=== PATIENT | male | born 1940 | race Caucasian/White ===

== ENCOUNTER 2020-01-04 06:48 | Outpatient (CLI) | payer MEDICARE, MEDICAID ==
[~2020-01-04] VITALS: Ht 177.8 cm; Wt 68.2 kg
[2020-01-04 08:42] VITALS: BP 104/56; Ht 177.8 cm; Wt 68.2 kg
[2020-01-04] MEDS ORDERED: LASIX20 MG (08:50)
[2020-01-04] MEDS ORDERED: PROTONIX20 MG PO (08:50)
[2020-01-04] MEDS ORDERED: ALDACTONE25 MG PO (08:53)
[2020-01-04] MEDS ORDERED: ULTRAM50 MG PO (08:55)
[2020-01-04] MEDS ORDERED: PROAIR HFA8.5 G1 INH (08:55)
[2020-01-04] MEDS ORDERED: COLACE100 MG PO (08:56)
--- NOTE | 2020-01-04 08:59 | NUR ---
INFECTION CONTROL NOTIFIED OF 2 DAY HOSPITALIZATION THIS YEAR
[2020-01-04 09:04] LABS: ANION GAP 15.6 mmol/L (8-16); CALCIUM 8.6 mg/dL (8.5-10.1); CARBON DIOXIDE 20.6 mmol/L (21.0-32.0); CREATININE - SERUM 1.2 mg/dL (0.6-1.3); POTASSIUM - SERUM 5.2 mmol/L (3.5-5.1)
[2020-01-04 09:10] LABS: APTT 33.7 SECONDS (22.8-39.4); INR 1.31 (0.85-1.17); PROTIME 16.2 SECONDS (11.6-15.0)
[2020-01-04 09:24] LABS: BASOPHILS 0.1 % (0-2); EOSINOPHILS 0.8 % (0-7); HEMATOCRIT 36.4 % (42.0-54.0); HEMOGLOBIN 12.4 g/dL (13.5-17.5); IMMATURE GRANULOCYTES 1.1 % (0-5); LYMPHOCYTES 14.5 % (15-50); MCHC 34.1 g/dL (31.0-37.0); MCV 94.1 fL (80.0-100.0); MEAN PLATELET VOLUME 8.9 fL (7.4-10.4); MONOCYTES 9.8 % (2-11); NEUTROPHILS 73.7 % (40-80); PLATELET COUNT 163 10x3/uL (130-400); RBC 3.87 10x6/uL (4.20-6.10); WBC 7.2 10x3/uL (4.8-10.8)
[2020-01-04 11:15] LABS: ALBUMIN 2.2 g/dL (3.4-5.0); BILIRUBIN - TOTAL 2.27 mg/dL (0.2-1.3); PROTEIN - SERUM 6.9 g/dL (6.4-8.2)
--- NOTE | 2020-01-04 11:59 | NUR ---
1200 SOFT REG DIET SERVED.
== END 2020-01-04 12:50 | disposition home or self-care (01) ==
LOC: D.SP 06:48 → D.CT 09:00 → D.SP 12:50
PROVIDERS: Radiology Vascular & Interventional Radiology; ATTEND Internal Medicine Medical Oncology
DX: R18.0 Malignant ascites (principal); C22.0 Liver cell carcinoma; B19.20 Unspecified viral hepatitis C without hepatic coma; K70.30 Alcoholic cirrhosis of liver without ascites; J44.9 Chronic obstructive pulmonary disease, unspecified; I10 Essential (primary) hypertension; Z72.0 Tobacco use